=== PATIENT | female | born 1955 | race African-American/Black ===

== ENCOUNTER 2016-08-10 16:47 | Emergency (ER) | payer BC ==
[~2016-08-10] VITALS: Ht 167.6 cm; Wt 122.5 kg
[2016-08-10 17:24] LABS: URINE BILIRUBIN NEGATIVE (Negative); URINE BLOOD TRACE (Negative); URINE COLOR YELLOW; URINE GLUCOSE-RANDOM* NEGATIVE (Negative); URINE KETONES NEGATIVE (Negative); URINE NITRITE NEGATIVE (Negative); URINE PROTEIN (DIPSTICK) NEGATIVE (Negative); URINE SPECIFIC GRAVITY 1.015 (1.003-1.035); URINE UROBILINOGEN 0.2 E.U./dl (0.2-1.0)
[2016-08-10 18:19] LABS: ABSOLUTE NEUTROPHILS 3.4 thou/uL (1.4-8.2); EOSINOPHILS 2.5 % (0.0-3.0); HEMATOCRIT 36.9 % (37.0-47.0); MCH 27.6 pg (26.0-34.0); MCHC 32.5 % (28.0-37.0); MCV 84.8 fL (80.0-100.0); MONOCYTES 8.2 % (1.0-8.0); PLATELET COUNT 304 thou/uL (150-400); POLYS 39.3 % (36.0-66.0); RBC 4.35 mil/uL (4.20-5.00); RDW 12.5 % (10.5-14.5); WBC 8.7 thou/uL (4.0-11.0)
[2016-08-10 18:22] LABS: MANUAL DIFF NO
[2016-08-10 18:30] LABS: CALCIUM 9.6 mg/dL (8.5-10.1); CREATININE 0.9 mg/dL (0.6-1.3); POTASSIUM 3.8 mmol/L (3.5-5.1)
[2016-08-10 18:36] LABS: ALBUMIN 3.5 g/dL (3.4-5.0); TOTAL BILIRUBIN 0.5 mg/dL (<0.1-1.0); TOTAL PROTEIN 7.8 g/dL (6.4-8.2)
[2016-08-10] MEDS ORDERED: CIPRO500 MG PO (19:36)
[2016-08-10] MEDS ORDERED: FLAGYL500 MG PO (19:36)
[2016-08-10] MEDS ORDERED: PHENERGAN 25 MG25 M1 PO (19:37)
[2016-08-10] MEDS ORDERED: HYDROCODONE-AP1 EAC6 PO (19:44)
[2016-08-10 19:49] VITALS: BP 145/85
== END 2016-08-10 19:50 | disposition home or self-care (01) ==
LOC: ER 16:47
PROVIDERS: Nurse Practitioner Family
DX: K57.32 Diverticulitis of large intestine without perforation or abscess without bleeding (principal); I10 Essential (primary) hypertension; F10.99 Alcohol use, unspecified with unspecified alcohol-induced disorder